=== PATIENT | female | born 1990 | race Hispanic/Latino ===

== ENCOUNTER 2019-02-27 18:29 | Emergency (ER) | payer SELFPAY ==
[2019-02-27 20:29] LABS: Absolute Lymphocytes (CBC) 1.3 K/uL (0.7-4.9); Absolute Monocytes 0.7 K/uL (0.1-1.3); Absolute Neutrophil 10.8 K/uL (1.8-8.0); Basophils % 0.5 % (0-1.3); Eosinophils % 0.4 % (0-4.4); Hematocrit 37.9 % (36.0-45.0); Lymphocytes % 10.2 % (15.3-44.8); MPV 7.4 fL (7.6-11.3); Monocytes % 5.1 % (3.3-12.3)
[2019-02-27] MEDS ORDERED: NA CHLORIDE 0.9% 1,000 ML ONE ×2 (20:38→21:19)
[2019-02-27 20:47] LABS: Potassium 3.7 mmol/L (3.5-5.1)
[2019-02-27] MEDS ORDERED: LIDOCAINE 1% W/EPI 1:100,000 MDV 50 ML VIAL ONE (21:18)
[2019-02-27] MEDS ORDERED: BUPIVACAINE 0.5% PF 10 ML VIAL ONE (21:18)
[2019-02-27] MEDS ORDERED: MORPHINE 2 MG/ML SYR ONE (21:18)
[2019-02-27] MEDS ORDERED: KETOROLAC 30 MG/ML INJ ONE (21:18)
--- NOTE | 2019-02-27 21:50 | EDPHYS ---
Physician Documentation [facility] Name: Dulce Dolan Age: 28 yrs Sex: Female : 1990 Arrival Date: 02/27/2019 Time: 18:31 Bed 15 Private MD: ED Physician Fredrick Araya HPI: 02/27 19:35 This 28 yrs old Female presents to ER via Ambulatory with complaints of Boil. 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 - Social history:: Smoking status: Patient/guardian denies using tobacco, Patient/guardian denies using alcohol, street drugs, Patient uses alcohol, occasionally. - Ebola Screening: : Patient negative for fever greater than or equal to 101.5 degrees Fahrenheit, and additional compatible Ebola Virus Disease symptoms Patient denies exposure to infectious person Patient denies travel to an Ebola-affected area in the 21 days before illness onset. ROS: 19:40 Constitutional: Positive for low grade fever, Negative for body aches, chills, poor PO cp intake. 19:40 Eyes: Negative for injury, pain, redness, and discharge. cp Exam: 19:10 ECG was reviewed by the Attending Physician. cp 19:48 Constitutional: The patient appears in no acute distress, alert, awake, non-toxic, well cp developed, well nourished, uncomfortable. 19:48 Head/Face: Normocephalic, atraumatic. cp 19:48 Eyes: Periorbital structures: appear normal, Conjunctiva: normal, no exudate, no injection, Sclera: no appreciated abnormality, Lids and lashes: appear normal, bilaterally. 19:48 ENT: External ear(s): are unremarkable, Nose: is normal, Mouth: Lips: moist, Oral mucosa: moist, Posterior pharynx: is normal, airway is patent, no erythema, no exudate. 19:48 Neck: ROM/movement: is normal, is supple, without pain, no range of motions limitations, no nuchal rigidity. 19:48 Chest/axilla: Inspection: normal, Palpation: is normal, no crepitus, no tenderness. 19:48 Cardiovascular: Rate: tachycardic, Rhythm: regular. 19:48 Respiratory: the patient does not display signs of respiratory distress, Respirations: normal, no use of accessory muscles, no retractions, no splinting, no tachypnea, labored breathing, is not present, Breath sounds: are clear throughout, no decreased breath sounds, no stridor, no wheezing. 19:48 Abdomen/GI: Inspection: abdomen appears normal, Palpation: abdomen is soft and non-tender, in all quadrants. 19:48 Back: pain, is absent, ROM is normal. 19:48 Skin: abscess, that is moderate sized, of the coccyx, with induration, with surrounding cellulitis, that is moderate. 19:48 Neuro: Orientation: to person, place \T\ time. Mentation: is normal, Cerebellar function: is grossly normal, Motor: moves all fours, strength is normal, Sensation: is normal. Vital Signs: 18:44 BP 122 / 79; Pulse 131; Resp 20; Temp 98.7(TE); Pulse Ox 99% on R/A; Weight 77 kg (R); ao Height 4 ft. 11 in. (149.86 cm) (R); Pain 8/10; 18:53 Temp 100.0(O); bp 20:29 BP 101 / 67; Pulse 113; Resp 17 S; Pulse Ox 99% on R/A; jd3 21:50 BP 110 / 90; Pulse 107; Resp 17 S; Pulse Ox 100% on R/A; jd3 22:49 BP 103 / 76; Pulse 101; Resp 17 S; Temp 99.8(O); Pulse Ox 100% on R/A; jd3 18:44 Body Mass Index 34.29 (77.00 kg, 149.86 cm) ao Procedures: 21:45 I \T\ D: Incision and drainage was performed for an abscess of the pilonidal cyst Prepped cp with Betadine, Anesthetized with 10 ccs of mixture of 1% lidocaine with epi and 0.5% marcaine. Incised with #11 blade. Drained moderate amount purulent fluid. bloody fluid. Cultures obtained. Packed with iodoform gauze, Dressing: sterile 4x4 gauze, the patient tolerated the procedure well. MDM: 19:00 Patient medically screened. cp 21:49 Data reviewed: vital signs, nurses notes, lab test result(s), EKG. cp 21:49 Test interpretation: by ED physician or midlevel provider: ECG. Counseling: I had a cp detailed discussion with the patient and/or guardian regarding: the historical points, exam findings, and any diagnostic results supporting the discharge/admit diagnosis, lab results, the need for outpatient follow up, a general surgeon, to return to the emergency department if symptoms worsen or persist or if there are any questions or concerns that arise at home. Response to treatment: the patient's symptoms have markedly improved after treatment, and as a result, I will discharge patient. 02/27 19:34 Order name: Lactate cp 02/27 19:34 Order name: Procalcitonin; Complete Time: 21:48 cp 02/27 19:34 Order name: Blood Culture Adult (2) cp 02/27 19:34 Order name: CBC with Diff; Complete Time: 20:57 cp 02/27 21:48 Interpretation: WBC 12.9; MPV 7.4; ROBBIN% 83.8; LYM% 10.2; NEUT A 10.8. cp 02/27 19:34 Order name: BMP; Complete Time: 20:57 cp 02/27 19:34 Order name: Lactate; Complete Time: 20:57 EDMS 02/27 20:29 Order name: Wound Culture 02/27 19:37 Order name: EKG - Nurse/Tech; Complete Time: 20:03 cp 02/27 19:38 Order name: Accucheck Blood Glucose; Complete Time: 20:22 cp 02/27 19:53 Order name: EKG; Complete Time: 19:53 jd3 02/27 20:29 Order name: I\T\D Setup; Complete Time: 21:11 cp EC:10 Rate is 136 beats/min. Rhythm is regular. NC interval is normal. QRS interval is cp prolonged at 104 msec. QT interval is normal. T waves are Inverted in leads V3, V4, V5. Interpreted by me. Reviewed by me. Administered Medications: 20:29 Drug: NS 0.9% 1000 ml Route: IV; Rate: 1 bolus; Site: right antecubital; jd3 22:50 Follow up: Response: No adverse reaction; IV Status: Completed infusion; IV Intake: jd3 1000ml 21:11 Drug: morphine 2 mg Route: IVP; Site: right antecubital; jd3 22:10 Follow up: Response: No adverse reaction jd3 21:11 Drug: TORadol 30 mg Route: IVP; Site: right antecubital; jd3 22:10 Follow up: Response: No adverse reaction jd3 21:11 Drug: NS 0.9% 1000 ml Route: IV; Rate: 1 bolus; Site: right antecubital; jd3 22:53 Follow up: Response: No adverse reaction; IV Status: Completed infusion; IV Intake: jd3 1000ml 21:27 Drug: Marcaine (0.5 %) 10 ml {Note: given by PA. Jair} Volume: 10 ml; Route: jd3 Infiltration; 22:25 Follow up: Response: No adverse reaction jd3 21:28 Drug: Lidocaine-Epinephrine -1%: (1:100,000) 20 ml {Note: given by PA. Jair} jd3 Volume: 20 ml; Route: Infiltration; 22:25 Follow up: Response: No adverse reaction jd3 22:07 Drug: Clindamycin 900 mg Route: IVPB; Infused Over: 30 mins; Site: right antecubital; jd3 22:53 Follow up: Response: No adverse reaction; IV Status: Completed infusion; IV Intake: [id number] 22:07 Drug: Bactrim (160 mg-800 mg (DS) 2 tablet Route: PO; jd3 22:54 Follow up: Response: No adverse reaction jd3 22:08 Drug: fentaNYL (PF) 25 mcg Route: IVP; Site: right antecubital; jd3 22:54 Follow up: Response: No adverse reaction jd3 Point of Care Testing: Blood Glucose: 20:22 Blood Glucose: 106 mg/dL; jd3 Ranges: Critical Glucose Levels:Adult <50 mg/dl or >400 mg/dl <40 mg/dl or >180 mg/dl Disposition: 02/28 06:44 Co-signature as Attending Physician, Fredrick PEREIRA I agree with the assessment and donny plan of care. Disposition: 02/27/19 21:49 Discharged to Home. Impression: Pilonidal cyst with abscess. - Condition is Stable. - Discharge Instructions: Incision and Drainage, Pilonidal Cyst. - Prescriptions for Clindamycin HCl 300 mg Oral Capsule - take 1 capsule by ORAL route every 6 hours for 10 days; 40 capsule. Tylenol- Codeine #3 300-30 mg Oral Tablet - take 2 tablets by ORAL route every 6 hours As needed; 20 tablet. Bactrim DS 800- 160 mg Oral Tablet - take 1 tablet by ORAL route every 12 hours for 10 days; 20 tablet. - Medication Reconciliation Form, Thank You Letter, Antibiotic Education, Prescription Opioid Use form. - Follow up: Christoph Gutierrez MD; When: Tomorrow; Reason: Wound Recheck. - Problem is new. - Symptoms have improved. Signatures: Dispatcher [employer] EDMS Fredrick Araya MD MD cha Page, Corey, PA PA cp Ortiz, Alex, RN RN Dmitry Douglas RN RN jd3 Corrections: (The following items were deleted from the chart) 02/27 22:55 21:49 02/27/2019 21:49 Discharged to Home. Impression: Pilonidal cyst with abscess. jd3 Condition is Stable. Forms are Medication Reconciliation Form, Thank You Letter, Antibiotic Education, Prescription Opioid Use. Follow up: Christoph Gutierrez; When: Tomorrow; Reason: Wound Recheck. Problem is new. Symptoms have improved. cp
--- NOTE | 2019-02-27 21:50 | ER ---
Nurse's Notes [facility] Name: Dulce Dolan Age: 28 yrs Sex: Female : 1990 Arrival Date: 02/27/2019 Time: 18:31 Bed 15 Private MD: Diagnosis: Pilonidal cyst with abscess Presentation: 02/27 18:41 Presenting complaint: Patient states: Report a boil in the sacral area. Patient reports ao fever this morning. Negative for nausea and vomiting. Transition of care: patient was not received from another setting of care. Onset of symptoms is unknown. Risk Assessment: Do you want to hurt yourself or someone else? Patient reports no desire to harm self or others. Initial Sepsis Screen: Does the patient meet any 2 criteria? HR > 90 bpm. No. Patient's initial sepsis screen is negative. Does the patient have a suspected source of infection? Yes: Other: Boil. Care prior to arrival: None. 18:41 Method Of Arrival: Ambulatory ao 18:41 Acuity: ROMEO 3 ao Triage Assessment: 18:46 General: Appears in no apparent distress. uncomfortable, Behavior is calm, cooperative, bp appropriate for age. Pain: Complains of pain in buttocks. EENT: No deficits noted. Neuro: Level of Consciousness is awake, alert, obeys commands, Oriented to person, place, time, situation, Appropriate for age. Cardiovascular: No deficits noted. Respiratory: Airway is patent Respiratory effort is even, unlabored, Respiratory pattern is regular, symmetrical. GI: No signs and/or symptoms were reported involving the gastrointestinal system. : No signs and/or symptoms were reported regarding the genitourinary system. Derm: Abscess located on buttocks is nickel sized. Musculoskeletal: Circulation, motion, and sensation intact. Range of motion: intact in all extremities. 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 - Social history:: Smoking status: Patient/guardian denies using tobacco, Patient/guardian denies using alcohol, street drugs, Patient uses alcohol, occasionally. - Ebola Screening: : Patient negative for fever greater than or equal to 101.5 degrees Fahrenheit, and additional compatible Ebola Virus Disease symptoms Patient denies exposure to infectious person Patient denies travel to an Ebola-affected area in the 21 days before illness onset. Screenin:59 Abuse screen: Denies threats or abuse. Denies injuries from another. Nutritional bp screening: No deficits noted. Tuberculosis screening: No symptoms or risk factors identified. Fall Risk None identified. Assessment: 18:59 General: SEE TRIAGE NOTE. bp 19:23 General: Appears uncomfortable, Behavior is calm, cooperative, appropriate for age. jd3 Pain: Complains of pain in coccyx. Neuro: Level of Consciousness is awake, alert, obeys commands, Oriented to person, place, time, situation, Appropriate for age. Cardiovascular: Capillary refill < 3 seconds Patient's skin is warm and dry. Respiratory: Airway is patent Respiratory effort is even, unlabored, Respiratory pattern is regular, symmetrical. GI: No signs and/or symptoms were reported involving the gastrointestinal system. : No signs and/or symptoms were reported regarding the genitourinary system. EENT: No signs and/or symptoms were reported regarding the EENT system. Derm: Skin is intact, Skin is dry, Skin is normal, Skin temperature is warm. Musculoskeletal: Circulation, motion, and sensation intact. Range of motion: intact in all extremities. 20:30 Reassessment: Patient appears in no apparent distress at this time. Patient and/or jd3 family updated on plan of care and expected duration. Pain level reassessed. Patient is alert, oriented x 3, equal unlabored respirations, skin warm/dry/pink. 21:50 Reassessment: Patient appears in no apparent distress at this time. Patient and/or jd3 family updated on plan of care and expected duration. Pain level reassessed. Patient is alert, oriented x 3, equal unlabored respirations, skin warm/dry/pink. 22:11 Reassessment: Patient appears in no apparent distress at this time. Patient and/or jd3 family updated on plan of care and expected duration. Pain level reassessed. Patient is alert, oriented x 3, equal unlabored respirations, skin warm/dry/pink. awaiting IV medication to infuse before discharge. 22:50 Reassessment: Patient appears in no apparent distress at this time. Patient and/or jd3 family updated on plan of care and expected duration. Pain level reassessed. Patient is alert, oriented x 3, equal unlabored respirations, skin warm/dry/pink. Vital Signs: 18:44 BP 122 / 79; Pulse 131; Resp 20; Temp 98.7(TE); Pulse Ox 99% on R/A; Weight 77 kg (R); ao Height 4 ft. 11 in. (149.86 cm) (R); Pain 8/10; 18:53 Temp 100.0(O); bp 20:29 BP 101 / 67; Pulse 113; Resp 17 S; Pulse Ox 99% on R/A; jd3 21:50 BP 110 / 90; Pulse 107; Resp 17 S; Pulse Ox 100% on R/A; jd3 22:49 BP 103 / 76; Pulse 101; Resp 17 S; Temp 99.8(O); Pulse Ox 100% on R/A; jd3 18:44 Body Mass Index 34.29 (77.00 kg, 149.86 cm) ao ED Course: 18:31 Patient arrived in ED. as 18:44 Triage completed. ao 18:46 Arm band placed on right wrist. Patient placed in an exam room, on a stretcher, on ao pulse oximetry. 18:47 Juanito Moe, LUISANA is Primary Nurse. bp 18:59 Patient has correct armband on for positive identification. Placed in gown. Bed in low bp position. Call light in reach. Side rails up X2. 19:00 Fredrick Clay PA is PHCP. cp 19:00 Bj Pizarro MD is Attending Physician. cp 19:38 Fredrick Araya MD is Attending Physician. cp 19:46 Primary Nurse role handed off by Juanito Moe, LUISANA ed1 19:52 Dmitry Dewitt RN is Primary Nurse. jd3 20:15 Inserted saline lock: 20 gauge in right antecubital area, using aseptic technique. jd3 Blood collected. 21:49 Christoph Gutierrez MD is Referral Physician. cp 22:49 No provider procedures requiring assistance completed. IV discontinued, intact, jd3 bleeding controlled, No redness/swelling at site. Pressure dressing applied. Administered Medications: 20:29 Drug: NS 0.9% 1000 ml Route: IV; Rate: 1 bolus; Site: right antecubital; jd3 22:50 Follow up: Response: No adverse reaction; IV Status: Completed infusion; IV Intake: jd3 1000ml 21:11 Drug: morphine 2 mg Route: IVP; Site: right antecubital; jd3 22:10 Follow up: Response: No adverse reaction jd3 21:11 Drug: TORadol 30 mg Route: IVP; Site: right antecubital; jd3 22:10 Follow up: Response: No adverse reaction jd3 21:11 Drug: NS 0.9% 1000 ml Route: IV; Rate: 1 bolus; Site: right antecubital; jd3 22:53 Follow up: Response: No adverse reaction; IV Status: Completed infusion; IV Intake: jd3 1000ml 21:27 Drug: Marcaine (0.5 %) 10 ml {Note: given by PA. Jair} Volume: 10 ml; Route: jd3 Infiltration; 22:25 Follow up: Response: No adverse reaction jd3 21:28 Drug: Lidocaine-Epinephrine -1%: (1:100,000) 20 ml {Note: given by PA. Jair} jd3 Volume: 20 ml; Route: Infiltration; 22:25 Follow up: Response: No adverse reaction jd3 22:07 Drug: Clindamycin 900 mg Route: IVPB; Infused Over: 30 mins; Site: right antecubital; jd3 22:53 Follow up: Response: No adverse reaction; IV Status: Completed infusion; IV Intake: [id number] 22:07 Drug: Bactrim (160 mg-800 mg (DS) 2 tablet Route: PO; jd3 22:54 Follow up: Response: No adverse reaction jd3 22:08 Drug: fentaNYL (PF) 25 mcg Route: IVP; Site: right antecubital; jd3 22:54 Follow up: Response: No adverse reaction jd3 Point of Care Testing: Blood Glucose: 20:22 Blood Glucose: 106 mg/dL; jd3 Ranges: Intake: 22:50 IV: 1000ml; Total: 1000ml. jd3 22:53 IV: 1000ml; Total: 2000ml. jd3 22:53 IV: 50ml; Total: 2050ml. jd3 Outcome: 21:49 Discharge ordered by . cp 22:49 Discharged to home ambulatory, with family. jd3 22:49 Condition: stable 22:49 Discharge instructions given to patient, family, Instructed on discharge instructions, follow up and referral plans. medication usage, Demonstrated understanding of instructions, follow-up care, medications, Prescriptions given X 3. 22:55 Patient left the ED. jd3 Signatures: Blanquita Perez Erika RN RN ed1 Fredrick Clay PA PA cp Ortiz, Alex RN RN ao Dmitry Dewitt RN RN jd3 Juanito Moe RN RN bp Corrections: (The following items were deleted from the chart) 18:54 18:44 LMP 12/13/2017 ao bp 20:00 19:59 No provider procedures requiring assistance completed. jd3 jd3 20:00 19:59 Patient did not have IV access during this emergency room visit. jd3 jd3 20:00 19:59 Condition: stable jd3 jd3 20:00 19:59 Discharged to home ambulatory, with family, jd3 jd3 20:00 19:59 Discharge instructions given to family, Instructed on discharge instructions, jd3 follow up and referral plans. medication usage, Demonstrated understanding of instructions, follow-up care, medications, Prescriptions given X 1, jd3
[2019-02-27] MEDS ORDERED: SMZ./TMP. 800/160 MG TABLET ONE (22:06)
[2019-02-27] MEDS ORDERED: CLINDAMYCIN 900MG/D5W 900 MG/50 ML IVPB IV ONE (22:09)
[2019-02-27] MEDS ORDERED: FENTANYL CITR 100 MCG/2 ML ONE (22:09)
--- NOTE | 2019-02-28 09:32 | EKG ---
Test Date: 2019-02-27 Test Time: 19:02:01 In House Counsel: LISBETH MEASUREMENT RESULTS: Intervals: Rate: 136 ME: 124 QRSD: 104 QT: 272 QTc: 409 [place]: P: 56 ME: 124 QRS: 42 T: 250 INTERPRETIVE STATEMENTS: Sinus tachycardia Incomplete right bundle branch block T wave abnormality, consider inferior ischemia T wave abnormality, consider anterolateral ischemia Abnormal ECG No previous ECG available for comparison Electronically Signed On 02-28-19 09:31:10 CDT by Seun Spencer
== END 2019-02-27 22:55 | disposition home or self-care (01) ==
LOC: ER 18:29
PROC: 0H98XZZ Drainage of Buttock Skin, External Approach (ICD-10-PCS; principal; 2019-02-27)
DX: L05.01 Pilonidal cyst with abscess (principal)
CPT/HCPCS: 36415; 80048; 82962; 83605; 84145; 85025; 87040; 87070; 87205; 93005; 96361; 96365; 96375; 99284; J2270; J3010; J7030

== ENCOUNTER 2020-11-02 11:23 | Emergency (ER) | payer SELFPAY ==
[2020-11-02 12:25] LABS: Urine Blood 3+ (NEG); Urine Glucose NEGATIVE (NEG); Urine Protein 2+ (NEG); Urine Specific Gravity >1.030 (1.005-1.030); Urine pH 5.5 (5.0-7.0)
[2020-11-02] MEDS ORDERED: KETOROLAC 30 MG/ML INJ ONE (12:39)
[2020-11-02 13:04] LABS: Absolute Lymphocytes (CBC) 1.8 K/uL (0.7-4.9); Basophils % 0.9 % (0-1.3); Hematocrit 38.9 % (36.0-45.0); Lymphocytes % 24.6 % (15.3-44.8); MPV 7.3 fL (7.6-11.3); RBC Red Blood Cell Count 4.63 M/uL (3.86-4.86)
[2020-11-02] MEDS ORDERED: NA CHLORIDE 0.9% 1,000 ML ONE (13:04)
[2020-11-02 13:09] LABS: Urine RBC >50 /HPF (NONE SEEN)
[2020-11-02] MEDS ORDERED: ONDANSETRON 4 MG/2 ML VIAL ONE (13:09)
[2020-11-02] MEDS ORDERED: MORPHINE 2 MG/ML SYR ONE (13:09)
[2020-11-02 13:11] LABS: Urine Bacteria <20 /HPF (<20); Urine Mucus 1+ /HPF (NONE SEEN)
--- NOTE | 2020-11-02 13:14 | RAD REPORT ---
EXAM DESCRIPTION: CT - Stone Protocol - 11/02/2020 12:55 pm CLINICAL HISTORY: left flank pain COMPARISON: No comparisons TECHNIQUE: Axial 3 mm thick images were obtained without oral or IV contrast. The [id number] span s the entirety of the system including uppermost abdomen and lung bases. All CT scans are performed using dose optimization technique as appropriate and may include automated exposure control or mA/KV adjustment according to patient size. FINDINGS: Mild hydronephrosis of the left pelvis and calices secondary to a 5 mm obstructing calculu s at the UPJ. More distally the ureter is normal size. No other obstructing or nonobstructing calculi . No suspicious renal masses. Isodense masses and pyelonephritis are not excluded on a stone protocol CT scan. No significant adrenal finding. No urinary bladder suspicious finding. Liver is prominent in size and shows diffuse fatty infiltration. No focal liver lesion on noncontrast imaging. Spleen and pancreas show no suspicious findings. Cholecystectomy clips are present with no biliary tree dilatation. No suspicious bowel findings. Appendix is normal. No hernia, mass or bulky lymphadenopathy noted. No free air, free fluid or inflammatory stranding. No significant bony abnormality. IMPRESSION: Mild hydronephrosis of the left pelvis and calices secondary to a 5 mm left UPJ calculus . Isodense masses and pyelonephritis are not excluded on stone protocol technique.
[2020-11-02 13:17] LABS: ALT/SGPT 32 U/L (12-78); AST/SGOT 35 U/L (15-37); Alkaline Phosphatase 88 U/L (45-117); BUN Blood Urea Nitrogen 15 mg/dL (7-18); Bicarbonate 30 mmol/L (21-32); Bilirubin Direct < 0.1 mg/dL (0-0.2); Bilirubin Total 0.4 mg/dL (0.2-1.0); Glucose Level 107 mg/dL (74-106); Lipase 97 U/L (73-393); Potassium 3.8 mmol/L (3.5-5.1); Sodium Level 139 mmol/L (136-145)
[2020-11-02] MEDS ORDERED: TAMSULOSIN 0.4 MG SR CAP ONE (13:48)
[2020-11-02] MEDS ORDERED: MAGNESIUM SULFATE 1 gm IVPB 1 GM/100 ML BAG IV ONE (13:48)
--- NOTE | 2020-11-02 14:11 | EDPHYS ---
Physician Documentation [facility] Name: Dulce Dolan Age: 30 yrs Sex: Female : 1990 Arrival Date: 11/02/2020 Time: 11:24 Bed 20 Private MD: ED Physician Fredrick Araya HPI: 11/02 12:10 This 30 yrs old Female presents to ER via Ambulatory with complaints of Back cp Pain. 12:10 The patient presents with pain that is acute, with no known mechanism of injury. The cp symptoms are located in the left flank. Onset: The symptoms/episode began/occurred this morning. The pain radiates to the left lower abdomen. Associated signs and symptoms: Pertinent negatives: chest pain, constipation, dysuria, fever, incontinence, numbness, urinary retention, vomiting, weakness. The problem was sustained from unknown cause. 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 - Social history:: Smoking status: . ROS: 12:15 Abdomen/GI: Positive for abdominal pain, Negative for vomiting, diarrhea, constipation, cp black/tarry stool, rectal bleeding. 12:15 Eyes: Negative for injury, pain, redness, and discharge. cp 12:15 Constitutional: Negative for body aches, chills, fever, poor PO intake. 12:15 Cardiovascular: Negative for chest pain, edema, palpitations. 12:15 Respiratory: Negative for cough, shortness of breath, wheezing. 12:15 Back: Positive for flank pain, on the left, Negative for injury or acute deformity, decreased range of motion. 12:15 : Negative for urinary symptoms, vaginal bleeding, vaginal discharge. 12:15 Neuro: Negative for gait disturbance, numbness, tingling, weakness. 12:15 All other systems are negative. Exam: 12:20 Head/Face: Normocephalic, atraumatic. cp 12:20 Constitutional: The patient appears in no acute distress, alert, awake, non-toxic, well developed, well nourished. 12:20 Eyes: Periorbital structures: appear normal, Conjunctiva: normal, no exudate, no cp injection, Sclera: no appreciated abnormality, Lids and lashes: appear normal, bilaterally. 12:20 ENT: External ear(s): are unremarkable, Nose: is normal, Mouth: Lips: moist, Posterior pharynx: Airway: no evidence of obstruction, patent. 12:20 Neck: ROM/movement: is normal, is supple, without pain, no range of motions limitations. 12:20 Chest/axilla: Inspection: normal. 12:20 Cardiovascular: Rate: normal, Rhythm: regular. 12:20 Respiratory: the patient does not display signs of respiratory distress, Respirations: normal, no use of accessory muscles, no retractions, labored breathing, is not present, Breath sounds: are clear throughout, no decreased breath sounds, no stridor, no wheezing. 12:20 Abdomen/GI: Inspection: abdomen appears normal, Bowel sounds: active, all quadrants, Palpation: soft, in all quadrants, mild abdominal tenderness, in the posterior aspect of left lateral abdomen, anterior aspect of left lateral abdomen and left lower quadrant, rebound tenderness, is not appreciated, involuntary guarding, is not appreciated. 12:20 Back: CVA tenderness, that is mild, is noted on the left. 12:20 Skin: no rash present. 12:20 Neuro: Orientation: to person, place \\T\\ time. Mentation: is normal, Motor: moves all fours, strength is normal, Sensation: is normal, Gait: is steady, at a normal pace, without difficulty. Vital Signs: 11:38 BP 129 / 68; Pulse 95; Resp 18; Temp 97.9(TE); Pulse Ox 97% on R/A; Weight 72.57 kg tw2 (R); Height 5 ft. 3 in. (160.02 cm); Pain 6/10; 13:03 BP 115 / 74; Pulse 93; Resp 17; Pulse Ox 99% ; bp 13:48 BP 126 / 70; Pulse 92; Resp 16; Temp 98.0(O); Pulse Ox 98% on R/A; mh5 14:22 BP 112 / 57; Pulse 84; Resp 16; Temp 98; Pulse Ox 98% ; bp 11:38 Body Mass Index 28.34 (72.57 kg, 160.02 cm) tw2 11:38 "6-10 when i am walking" tw2 MDM: 12:06 Patient medically screened. [facility] 14:10 Data reviewed: vital signs, nurses notes, lab test result(s), radiologic studies, CT cp scan. 14:10 Counseling: I had a detailed discussion with the patient and/or guardian regarding: the cp historical points, exam findings, and any diagnostic results supporting the discharge/admit diagnosis, lab results, radiology results, to return to the emergency department if symptoms worsen or persist or if there are any questions or concerns that arise at home. Response to treatment: the patient's symptoms have markedly improved after treatment, and as a result, I will discharge patient. 11/02 12:04 Order name: Urine Dipstick--Ancillary (enter results); Complete Time: 12:31 bd 11/02 12:04 Order name: Urine --Ancillary (enter results); Complete Time: 12:31 bd 11/02 12:34 Order name: Urine Microscopic Only; Complete Time: 13:19 cp 11/02 13:19 Interpretation: Normal except: URBC >50; SQEPI 10-20. cp 11/02 12:34 Order name: Basic Metabolic Panel; Complete Time: 13:19 cp 11/02 12:34 Order name: CBC with Diff; Complete Time: 13:19 cp 11/02 12:34 Order name: Hepatic Function; Complete Time: 13:19 cp 11/02 12:34 Order name: Stone Protocol CT; Complete Time: 13:19 cp 11/02 12:34 Order name: Lipase; Complete Time: 13:19 cp 11/02 11:47 Order name: Urine Dipstick-Ancillary (obtain specimen); Complete Time: 12:07 cp 11/02 11:47 Order name: Urine Test (obtain specimen); Complete Time: 12:07 cp 11/02 12:34 Order name: IV Saline Lock; Complete Time: 12:56 cp 11/02 12:34 Order name: Labs collected and sent; Complete Time: 12:56 cp 11/02 13:49 Order name: PO challenge; Complete Time: 14:11 cp Administered Medications: 12:27 Drug: Ketorolac 30 mg Route: IM; Site: right gluteus; bp 12:36 Follow up: Response: Pain is decreased bp 13:02 Drug: NS 0.9% 1000 ml Route: IV; Rate: 1 bolus; Site: right antecubital; bp 14:24 Follow up: IV Status: Completed infusion; IV Intake: 1000ml bp 13:02 Drug: Zofran (Ondansetron) 4 mg Route: IVP; Site: right antecubital; bp 13:37 Follow up: Response: No adverse reaction bp 13:02 Drug: morphine 2 mg Route: IVP; Site: right antecubital; bp 13:36 Follow up: Response: Pain is decreased bp 13:30 Drug: Magnesium Sulfate 1 grams Route: IVPB; Infused Over: 1 hrs; Site: right bp antecubital; 14:24 Follow up: IV Status: Completed infusion; IV Intake: 100ml bp 13:30 Drug: Flomax 0.4 mg Route: PO; bp 13:37 Follow up: Response: No adverse reaction bp Disposition: 11/03 06:54 Co-signature as Attending Physician, Fredrick Araya MD I agree with the assessment and donny plan of care. Disposition: 11/02/20 14:11 Discharged to Home. Impression: Calculus of kidney and ureter - left. - Condition is Stable. - Discharge Instructions: Kidney Stones. - Prescriptions for Tylenol- Codeine #3 300-30 mg Oral Tablet - take 2 tablets by ORAL route every 6 hours As needed; 20 tablet. Zofran 4 mg Oral Tablet - take 1 tablet by ORAL route every 12 hours As needed; 20 tablet. Flomax 0.4 mg Oral Capsule, Sust. Release 24 hr - take 1 capsule by ORAL route once daily As needed 1/2 hour following the same meal each day; 7 capsule. - Medication Reconciliation Form, Thank You Letter, Antibiotic Education, Prescription Opioid Use form. - Follow up: Vega Coffey MD; When: 1 week; Reason: pain continues. - Problem is new. - Symptoms have improved. Signatures: Dispatcher [employer] EDKY Fredrick Araya MD MD cha Page, Corey, PA PA cp Wise, Tara, RN RN tw2 Juanito Moe, LUISANA RN bp Corrections: (The following items were deleted from the chart) 11/02 11:41 11:41 PSHx: None; tw2 tw 14:25 14:11 11/02/2020 14:11 Discharged to Home. Impression: Calculus of kidney and ureter - bp left. Condition is Stable. Forms are Medication Reconciliation Form, Thank You Letter, Antibiotic Education, Prescription Opioid Use. Follow up: Vega Coffey; When: 1 week; Reason: pain continues. Problem is new. Symptoms have improved. cp
--- NOTE | 2020-11-02 14:11 | ER ---
Nurse's Notes [facility] Name: Dulce Dolan Age: 30 yrs Sex: Female : 1990 Arrival Date: 11/02/2020 Time: 11:24 Bed 20 Private MD: Diagnosis: Calculus of kidney and ureter-left Presentation: 11/02 11:38 Chief complaint: Patient states: LEFT sided back pain that started last night around 2 tw2 am, she did mop yesterday. Coronavirus screen: At this time, the client does not indicate any symptoms associated with coronavirus-19. Ebola Screen: Patient denies travel to an Ebola-affected area in the 21 days before illness onset. Initial Sepsis Screen: Does the patient meet any 2 criteria? No. Patient's initial sepsis screen is negative. Does the patient have a suspected source of infection? No. Patient's initial sepsis screen is negative. Risk Assessment: Do you want to hurt yourself or someone else? Patient reports no desire to harm self or others. Onset of symptoms was November 02, 2020. 11:38 Method Of Arrival: Ambulatory tw2 11:38 Acuity: ROMEO 4 tw2 Triage Assessment: 11:41 General: Appears in no apparent distress. uncomfortable, obese, well groomed, Behavior tw2 is calm, cooperative, appropriate for age. Pain: Complains of pain in left low back. Musculoskeletal: Range of motion: intact in all extremities. 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 - Social history:: Smoking status: . Screenin:56 Abuse screen: Denies threats or abuse. Denies injuries from another. Nutritional ca1 screening: No deficits noted. Tuberculosis screening: No symptoms or risk factors identified. Fall Risk None identified. Assessment: 11:56 General: Appears in no apparent distress. comfortable, Behavior is calm, cooperative, ca1 appropriate for age. Pain: Complains of pain in left low back Pain radiates to left lower quadrant Pain currently is 7 out of 10 on a pain scale. Neuro: Level of Consciousness is awake, alert, obeys commands, Oriented to person, place, time, situation. Derm: Skin is intact, is healthy with good turgor, Skin is pink, warm \\T\\ dry. Musculoskeletal: Circulation, motion, and sensation intact. Capillary refill < 3 seconds. 13:03 Reassessment: No changes from previously documented assessment. Patient and/or family bp updated on plan of care and expected duration. Pain level reassessed. Patient is alert, oriented x 3, equal unlabored respirations, skin warm/dry/pink. PT RETURNED FROM CT. 14:23 Reassessment: PT D/C HOME AMBULATORY WITH FAMILY, DX WITH KIDNEY STONE. bp Vital Signs: 11:38 BP 129 / 68; Pulse 95; Resp 18; Temp 97.9(TE); Pulse Ox 97% on R/A; Weight 72.57 kg tw2 (R); Height 5 ft. 3 in. (160.02 cm); Pain 6/10; 13:03 BP 115 / 74; Pulse 93; Resp 17; Pulse Ox 99% ; bp 13:48 BP 126 / 70; Pulse 92; Resp 16; Temp 98.0(O); Pulse Ox 98% on R/A; mh5 14:22 BP 112 / 57; Pulse 84; Resp 16; Temp 98; Pulse Ox 98% ; bp 11:38 Body Mass Index 28.34 (72.57 kg, 160.02 cm) tw2 11:38 "6-10 when i am walking" tw2 ED Course: 11:24 Patient arrived in ED. ag3 11:40 Triage completed. tw2 11:41 Arm band placed on. tw2 11:42 Janette Lockett, LUISANA is Primary Nurse. ca1 11:46 Fredrick Clay PA is PHCP. cp 11:46 Fredrick Araya MD is Attending Physician. cp 11:56 Patient has correct armband on for positive identification. Call light in reach. Side ca1 rails up X 1. Pulse ox on. NIBP on. Warm blanket given. 12:30 Inserted saline lock: 20 gauge in right antecubital area, using aseptic technique. bp Blood collected. 12:[address] In Process Unspecified. EDMS 14:10 Vega Coffey MD is Referral Physician. cp 14:22 No provider procedures requiring assistance completed. IV discontinued, intact, bp bleeding controlled, No redness/swelling at site. Pressure dressing applied. Administered Medications: 12:27 Drug: Ketorolac 30 mg Route: IM; Site: right gluteus; bp 12:36 Follow up: Response: Pain is decreased bp 13:02 Drug: NS 0.9% 1000 ml Route: IV; Rate: 1 bolus; Site: right antecubital; bp 14:24 Follow up: IV Status: Completed infusion; IV Intake: 1000ml bp 13:02 Drug: Zofran (Ondansetron) 4 mg Route: IVP; Site: right antecubital; bp 13:37 Follow up: Response: No adverse reaction bp 13:02 Drug: morphine 2 mg Route: IVP; Site: right antecubital; bp 13:36 Follow up: Response: Pain is decreased bp 13:30 Drug: Magnesium Sulfate 1 grams Route: IVPB; Infused Over: 1 hrs; Site: right bp antecubital; 14:24 Follow up: IV Status: Completed infusion; IV Intake: 100ml bp 13:30 Drug: Flomax 0.4 mg Route: PO; bp 13:37 Follow up: Response: No adverse reaction bp Intake: 14:24 IV: 100ml; Total: 100ml. bp 14:24 IV: 1000ml; Total: 1100ml. bp Outcome: 14:11 Discharge ordered by MD. cp 14:23 Discharged to home ambulatory, with family. bp 14:23 Condition: stable 14:23 Discharge instructions given to patient, Instructed on discharge instructions, follow up and referral plans. medication usage, Demonstrated understanding of instructions, follow-up care, medications, Prescriptions given X 3. 14:25 Patient left the ED. bp Signatures: Dispatcher [employer] EDMS Fredrick Clay PA PA cp Anjali Gonsalez RN RN tw2 Halley Perze [facility] Juanito Moe RN RN bp Shannan Roche 3 Janette Lockett RN RN ca1 Corrections: (The following items were deleted from the chart) 11:41 11:41 PSHx: None; tw2 tw 12:00 11:56 Pain: Complains of pain in left low back Pain currently is 7 out of 10 on a pain ca1 scale. ca1
[2020-11-02 14:35] VITALS: O2SAT 98
[2020-11-02 14:36] VITALS: BP 112/57; TEMP 98
== END 2020-11-02 14:25 | disposition home or self-care (01) ==
LOC: ER 11:23
DX: N20.2 Calculus of kidney with calculus of ureter (principal)
CPT/HCPCS: 36415; 74176; 76377; 80048; 80076; 81003; 81015; 81025; 83690; 85025; 96365; 96372; 96375; 99284; J2270; J2405; J3475; J7030

== ENCOUNTER 2022-10-12 04:52 | Inpatient (IN) | payer MEDICAID, SELFPAY ==
[2022-10-11 12:04] LABS: Absolute Lymphocytes (CBC) 1.5 K/uL (0.7-4.9); Hematocrit 31.7 % (36.0-45.0); Lymphocytes % 23.3 % (15.3-44.8); MCV 76.8 fL (80-100); MPV 7.4 fL (7.6-11.3); RBC Red Blood Cell Count 4.13 M/uL (3.86-4.86)
[2022-10-11 12:06] LABS: Protime INR 0.91
[2022-10-11 12:10] LABS: Calcium Oxalate Crystals- Ur Moderate /HPF (None Seen); Specific Gravity 1.025 (1.005-1.030); Urine Bacteria <20 /HPF (<20); Urine Bilirubin NEGATIVE (Negative); Urine Blood Negative (Negative); Urine Clarity Clear (Clear); Urine Color Yellow (Yellow); Urine Glucose NEGATIVE (Negative); Urine Mucus 1+ /HPF (None Seen); Urine Protein 1+ (Negative); Urine RBC None Seen /HPF (None Seen); Urine Urobilinogen Normal (Normal)
[2022-10-11 22:10] LABS: RPR (Rapid Plasma Reagin) NON-REACT (NON-REACT)
[~2022-10-12 04:52] MED LIST: Ringers Lactate 1,000 ML IV PRN; Ringers Lactate 1,000 ML IV SCH
[2022-10-12] MEDS ORDERED: CEFAZOLIN SODIUM 2 GM/VIAL ONE (05:41)
[2022-10-12] MEDS ORDERED: NA CHLORIDE 0.9% 100 ML ONE (05:43)
[2022-10-12 05:47] VITALS: BMI 31.8
[2022-10-12 05:54] VITALS: O2SAT 98
[2022-10-12] MEDS ORDERED: dexAMETHasone 10 MG/ML VIAL ONE (06:00)
[2022-10-12] MEDS ORDERED: ROPLVACAINE HCL 0 ML ONE (06:00)
[2022-10-12] MEDS ORDERED: EPINEPHRINE/PF 1 MG/ML AMP ONE (06:00)
[2022-10-12] MEDS ORDERED: LIDOCAINE 1% MPF 5 ML VIAL ONE ×2 (06:00→06:16)
[2022-10-12] MEDS ORDERED: EPHEDRINE SULF 50 MG/ML VIAL ONE (06:16)
[2022-10-12] MEDS ORDERED: FENTANYL CITR 100 MCG/2 ML ONE (06:16)
[2022-10-12] MEDS ORDERED: BUPIVACAINE 0.75% (PF) 2 ML SP ONE (06:16)
[2022-10-12] MEDS ORDERED: MORPHINE SULFATE/PF 1 MG/ML (10 ML AMP) ONE (06:16)
[2022-10-12] MEDS ORDERED: Phenylephrine HCl 10 MG/ML 1 ML VIAL ONE (06:16)
[2022-10-12] MEDS ORDERED: OXYTOCIN 10 UNIT/ML ML ONE (06:16)
[2022-10-12] MEDS ORDERED: NS 0.9% VIAL 20 ML ONE (06:16)
[2022-10-12] MEDS ORDERED: ONDANSETRON 4 MG/2 ML VIAL IV ONE (06:21)
[2022-10-12] MEDS ORDERED: D5LR 1,000 ML with OXYTOCIN 20 UNIT IV SCH ×2 (06:30)
[2022-10-12] MEDS ORDERED: METHYLERGONOVINE 0.2MG/ML AMP IM ONE (06:30)
[2022-10-12] MEDS ORDERED: FAMOTIDINE 20 MG/2 ML VIAL IV ONE (06:30)
[2022-10-12] MEDS ORDERED: CEFAZOLIN 2 GM in NA CHLORIDE 0.9% 50 ML IVPB SCH (06:30)
[2022-10-12] MEDS ORDERED: NA CIT/CITRIC AC 30 ML ORAL UDC PO ONE (06:30)
[2022-10-12] MEDS ORDERED: OXYTOCIN/LR 20 UNIT/1,000 ML BAG IV SCH ×2 (06:30→09:00)
[2022-10-12] MEDS ORDERED: METOCLOPRAMIDE 10 MG/2mL INJ IV SCH (06:30)
[2022-10-12] MEDS ORDERED: CARBOPROST TROME 250 MCG/ML IM ONE (06:30)
[2022-10-12] MEDS ORDERED: IBUPROFEN 600 MG TAB PO PRN (08:22)
[2022-10-12] MEDS ORDERED: ACETAMINOPHEN 500 MG TAB PO PRN ×2 (08:22)
[2022-10-12] MEDS ORDERED: ONDANSETRON 4 MG (ODT) TAB PO PRN (08:22)
[2022-10-12] MEDS ORDERED: DIPHENHYDRAMINE 25 MG TAB/CAP PO PRN (08:22)
[2022-10-12] MEDS ORDERED: KETOROLAC 30 MG/ML INJ IM PRN (08:22)
[2022-10-12] MEDS ORDERED: Oxycodone HCl/Acetaminophen 1 TAB TAB PO PRN (08:22)
[2022-10-12] MEDS ORDERED: BISACODYL 10 MG RECTAL SUPP RC PRN (08:22)
--- NOTE | 2022-10-12 10:46 | OP ---
Surgeon: Joselito Dickson MD [employer] Manager: Christoph Gutierrez MD. Anesthesiologist: Dr. Doran. Indications: A 32-year-old, 2, para 1, for repeat . Full preoperative counseling c oncerning procedure and possible complications including infection; blood loss; anesthetic complicati ons; injury to bladder, bowel, ureter; postoperative complications; clots in legs; and pneumonia. Th e patient knows fully well this does not constitute all the possible problems that could occur during or following surgery and knows with each , the risks and complications are greater. Anesthesia: Spinal block anesthesia. Procedure In Detail: After prepping and draping, time-out was performed. Then at this point, incisi on was carried over the previous incision with a scalpel and carried to the fascia. The fascia was i ncised and the incision carried transversely bilaterally. Anterior and posterior planes were develop ed with both blunt and sharp dissection. Defect in the perineum was seen and entered. Retraction wa s applied. Low transverse bladder flap was developed. Low transverse uterine incision was created. A 6-pound 10-ounce female was delivered without difficulties, Apgars 9 and 9. Cord blood specimen o btained. Placenta removed manually. Uterus cleared of clot and blood and exteriorized. Cervical os dilated with ring clamp. Uterus closed with a running locked stitch of 1 chromic followed by imbric ating stitch of 1 chromic and 1 to 2 stitches long suture line for complete hemostasis. Estimated bl ood loss 700 cc. Gutters cleared of clot and blood. Uterus replaced back into the peritoneal cavity . The suture line was rechecked, no further bleeding. Muscles were reapproximated with 0 Vicryl, 2 interrupted sutures. The fascia was closed with 1 Vicryl running from either angle to the midline. Subcutaneous tissue closed with 2-0 plain. [place] then used for the skin. The patient had been giv en 2 g of Ancef prior to the procedure. Tolerated all procedures well and transferred back to her ro om in good condition. Final Diagnoses: Term intrauterine , repeat section, spinal block anesthesia, admi ssion anemia. This was discussed with the patient and she will continue with her iron therapy in the post surgical. NANCY/SRINIVAS Voice ID: [id number] Report ID: [id number]
[2022-10-12] MEDS: D5LR 1,000 ML with OXYTOCIN 20 UNIT IV SCH ×2 (11:00)
[2022-10-12 15:55] LABS: Hematocrit 30.7 % (36.0-45.0)
[2022-10-12] MEDS ORDERED: CEFAZOLIN SODIUM 2 GM in NA CHLORIDE 0.9% 100 ML IVPB ONE (16:00)
[2022-10-12] MEDS: KETOROLAC 30 MG/ML INJ IV PRN (18:05)
[2022-10-13] MEDS: Oxycodone HCl/Acetaminophen 1 TAB TAB PO PRN ×3 (00:58→15:59)
[2022-10-13] MEDS: D5LR 1,000 ML with OXYTOCIN 20 UNIT IV SCH ×2 (01:12)
--- NOTE | 2022-10-13 07:49 | PN ---
Dulce Dolan postoperatively is doing quite well, is ambulating, output is good. No complaints. Passing gas. We will discontinue her Tobin and IV. She will clean her incision 2-3 times a day wi th alcohol. She can take a shower this afternoon. If all goes well, she can go home tomorrow, possi tobin even this evening if she desires. We will see how she feels. Postoperative care discussed. She knows to report any fever of 100 degrees or more severe pain, heavy bleeding to call the office and make an appointment for next week for followup. She knows it is important to continue with her prena sharon vitamins and extra iron as she is mildly anemic. H and H with minimal change pre and postop and lochia is normal at this point. Tdap and flu shots have been discussed thoroughly. No post spinal b lock problems. Doing quite well. NANCY/MODL Voice ID: [id number] Report ID: [id number]
[2022-10-13] MEDS ORDERED: MAGNESIUM HYDROXIDE 8% 30 ML PO PRN (08:22)
[2022-10-13] MEDS: KETOROLAC 30 MG/ML INJ IV PRN (09:07)
[2022-10-13 18:10] VITALS: BP 120/80; TEMP 98.1
[2022-10-14 03:06] LABS: HBsAG Nonreactive (Nonreactive)
[2022-10-14 04:02] LABS: HIV AG/AB 4TH GEN Non-reactive (Non-reactive)
--- NOTE | 2022-10-19 07:38 | PREOPHP ---
Date of Admission: 10/12/2022 History Of Present Illness: A 32-year-old 2, para 1, for repeat section. Infection ; blood loss; anesthetic complications; injury to bladder, bowel, ureter discussed; postop complicati ons, clots in legs; pneumonia. The patient knows fully well this does not constitute all the possibl e problems that could occur during or following surgery. Family History: Noncontributory. Past Medical History: No past medical history of any significance. Allergies: NO ALLERGIES. Past Surgical History: Previous . Social History: Does not smoke. Physical Examination: HEENT: Clear. Pupils equal, round, reactive to light and accommodation. Conjunctivae well perfused . No oral, lingual, or buccal lesions. Chest and Lungs: Clear. Heart: Without murmurs, thrills, heaves, rubs. Breasts: Without masses on previous visits. Abdomen: Term size. Extremities: Clear. Assessment And Plan: Pelvic exam done in the office showed 1 cm vertex presenting essentially health y female at 39 weeks, for repeat section. NANCY/SRINIVAS Voice ID: [id number]
== END 2022-10-13 17:40 | disposition home or self-care (01) | DRG 788 ==
LOC: 2ND-WC 04:52
PROVIDERS: ADMIT Specialist; ATTEND Specialist
PROC: 10D00Z1 Extraction of Products of Conception, Low, Open Approach (ICD-10-PCS; principal; 2022-10-12 07:00)
DX: O34.211 Maternal care for low transverse scar from previous cesarean delivery (principal); Z3A.39 39 weeks gestation of pregnancy; Z37.0 Single live birth; O99.02 Anemia complicating childbirth; Z20.822 Contact with and (suspected) exposure to COVID-19
CPT/HCPCS: 36415; 81001; 85014; 85018; 85025; 85610; 85730; 86592; 86850; 86900; 86901; 87340; 87389; 88307; A4216; J0171; J1100; J2001; J2210; J2370; J2405; J2590; J2765; J2795; J3010; J7120; J7121; Q0162; U0003